=== PATIENT | female | born 1995 | race African-American/Black ===

== ENCOUNTER 2020-11-15 13:27 | Emergency (ER) | payer MEDICAID ==
--- NOTE | 2020-11-15 14:36 | ER Document Report ---
ED Medical Screen (RME) - General Stated Complaint: PELVIC PAIN Time Seen by Provider: 11/15/20 14:10 Notes: Patient presents complaining of lower pelvic pain for the past 4 days. Patient had an IUD removed yesterday due to malpositioning. Patient complains of lower pelvic pain with vaginal bleeding. Patient denies any fever, nausea or vomiting. Patient denies any urinary symptoms. I have greeted and performed a rapid initial assessment of this patient. A com prehensive ED assessment and evaluation of the patient, analysis of test results and completion of the medical decision making process will be conducted by additional ED providers. Physical Exam - Abdominal Tenderness: Tender - Lower pelvic tenderness
[2020-11-15 14:57] LABS: APPEARANCE,URINE SLIGHTLY-CLOUDY; BILIRUBIN,URINE NEGATIVE (NEGATIVE); COLOR,URINE YELLOW; GLUCOSE, URINE NEGATIVE (NEGATIVE); KETONES,URINE NEGATIVE (NEGATIVE); LEUKOCYTE ESTERASE,URINE SMALL (NEGATIVE); NITRITE,URINE NEGATIVE (NEGATIVE); PROTEIN,URINE 30 mg/dL (NEGATIVE); URINE SPECIFIC GRAVITY 1.028; UROBILINOGEN,URINE NEGATIVE mg/dL (<2.0)
--- NOTE | 2020-11-15 15:02 | ER Document Report ---
ED General - General Stated Complaint: PELVIC PAIN Time Seen by Provider: 11/15/20 14:10 Primary Care Provider: [facility] [Provider Group] - Follow up in 3-5 days - HPI Notes: 25-year-old female to the emergency department with complaints of pelvic pain that is been going on for 4 days. Admits to a slight vaginal discharge with it. She states that she saw her primary care provider at [facility] [address] yesterday. She had her IUD removed at that time thinking that it potentially was the reason why she is having pelvic pain. She also had STD testing and an ultrasound performed. Apparently the ultrasound said that she had some fluid in her uterus but no other findings. She states that she did get a call from her primary care physician well awaiting to be seen today and was told that she has a chlamydial infection. She does admit that she has been having unprotected sexual intercourse with her current partner. She states she is never had an STD before. Denies any fevers chills. She states that the pelvic pain is uncomfortable but not unbearable. Denies any nausea, vomiting, diarrhea. She denies any pain with urination. patient states that her primary care had called in a prescription for antibiotics for the chlamydia to her pharmacy but when we called her pharmacy, there was no prescription available for her. - Related Data Allergies/Adverse Reactions: No Known Allergies Allergy (Unverified 11/15/20 15:20) Past Medical History - General Information source: Patient - Social History Smoking Status: Never Smoker Frequency of alcohol use: Occasional Drug Abuse: None Family History: Reviewed & Not Pertinent Review of Systems - Review of Systems Constitutional: denies: Chills, Fever EENT: No symptoms reported Cardiovascular: denies: Chest pain, Dizziness, Lightheaded Respiratory: denies: Cough, Short of breath Gastrointestinal: Abdominal pain. denies: Diarrhea, Nausea, Vomiting Genitourinary: See HPI Female Genitourinary: See HPI, Vaginal discharge Musculoskeletal: No symptoms reported Skin: No symptoms reported Hematologic/Lymphatic: No symptoms reported Neurological/Psychological: No symptoms reported -: Yes All other systems reviewed and negative Physical Exam - Vital signs Vitals: Temp Pulse Resp BP Pulse Ox 98.0 F 89 16 111/71 100 11/15/20 13:44 11/15/20 13:44 11/15/20 13:44 11/15/20 13:44 11/15/20 13:44 Interpretation: Normal - Notes Notes: PHYSICAL EXAMINATION: GENERAL: Well-appearing, well-nourished and in no acute distress. HEAD: Atraumatic, normocephalic. EYES: Pupils equal round and reactive to light, extraocular movements intact, sclera anicteric, conjunctiva are normal. ENT: nares patent, oropharynx clear without exudates. Moist mucous membranes. NECK: Normal range of motion, supple without lymphadenopathy LUNGS: Breath sounds clear to auscultation bilaterally and equal. No wheezes rales or rhonchi. HEART: Regular rate and rhythm without murmurs ABDOMEN: Soft, nontender, normoactive bowel sounds. No guarding, no rebound. No masses appreciated. No CVA tenderness EXTREMITIES: Normal range of motion, no pitting or edema. No cyanosis. NEUROLOGICAL: No focal neurological deficits. Moves all extremities sponta neously and on command. PSYCH: Normal mood, normal affect. SKIN: Warm, Dry, normal turgor, no rashes or lesions noted. Course - Re-evaluation Re-evalutation: 11/15/20 16:04 Impression: Pelvic pain. Positive chlamydial infection through primary care that has not yet been treated. We will go ahead and give a shot of Rocephin and start on 14 days of doxycycline. We will do this since she does not have a prescription that we know of at her pharmacy currently. We will have her follow-up with [facility] [address] beginning of next week. She is to return if she has worsening symptoms. Noted lab work which is reassuring. She is not febrile. We will discharge home. - Vital Signs Vital signs: Temp Pulse Resp BP Pulse Ox 97.6 F 84 16 107/64 99 11/15/20 16:49 11/15/20 16:49 11/15/20 16:49 11/15/20 16:49 11/15/20 16:49 - Laboratory Results Result Diagrams: 11/15/20 14:27 11/15/20 14:27 Laboratory Results Interpreted: 11/15/20 11/15/20 14:27 14:27 Seg Neutrophils % 81.1 H Urine Protein 30 H Urine Blood MODERATE H Ur Leukocyte Esterase SMALL H Critical Laboratory Results Reviewed: No Critical Results - Radiology Results Critical Radiology Results Reviewed: No Critical Results Discharge - Discharge Clinical Impression: Pelvic pain, Chlamydia Condition: Stable Disposition: HOME, SELF-CARE Instructions: Chlamydia ([facility]), Pelvic Pain ([facility]) Additional Instructions: Please complete all antibiotics. He will need to take them for the full 2 weeks until they are gone. No sex with your significant other until they are tested and treated as well. Please return if you have worsening pain, fever, nausea, vomiting. Follow-up with [facility] [address] on Wednesday. Prescriptions: Doxycycline Monohydrate 100 mg PO BID #28 capsule Naproxen [Naprosyn 375 Mg Tablet] 375 mg PO BID #20 tablet Referrals: [facility] [Provider Group] - Follow up in 3-5 days
[2020-11-15 15:03] LABS: ABSOLUTE EOSINOPHILS # (AUTO) 0.1 10^3/uL (0.0-0.6); ABSOLUTE MONOCYTES (AUTO) 0.3 10^3/uL (0.1-1.4); ABSOLUTE NEUT (AUTO) 5.9 10^3/uL (1.7-8.2); BASOPHILS % (AUTO) 0.2 % (0-2); EOSINOPHILS % (AUTO) 0.9 % (0-6); HEMATOCRIT 37.4 % (36.0-47.0); HEMOGLOBIN 12.5 g/dL (12.0-15.5); LYMPHOCYTES % (AUTO) 13.9 % (13-45); MEAN CORPUSCULAR HEMOGLOBIN 30.6 pg (27.0-33.4); MEAN CORPUSCULAR HGB CONC 33.5 g/dL (32.0-36.0); MEAN CORPUSCULAR VOLUME 91 fl (80-97); MONOCYTES % (AUTO) 3.9 % (3-13); PLATELET COUNT 287 10^3/uL (150-450); RED CELL DISTRIBUTION WIDTH 12.9 % (11.5-14.0); SEGMENTED NEUTROPHILS % (AUTO) 81.1 % (42-78); TOTAL CELLS COUNTED % (AUTO) 100 %; WHITE BLOOD COUNT 7.3 10^3/uL (4.0-10.5)
[2020-11-15 15:12] LABS: ANION GAP 8 (5-19); BLOOD UREA NITROGEN 11 mg/dL (7-20); CALCIUM 9.7 mg/dL (8.4-10.2); CARBON DIOXIDE 25 mmol/L (22-30); CHLORIDE 104 mmol/L (98-107); GLUCOSE 83 mg/dL (75-110); POTASSIUM 4.6 mmol/L (3.6-5.0)
[2020-11-15] MEDS ORDERED: CEFTRIAXONE INJ 250 MG VIAL IM ONE (15:16)
[2020-11-15] MEDS ORDERED: LIDOCAINE 1% INJ-PF (10 MG/ML) 30 ML SDV INJ ONE (15:16)
[2020-11-15] MEDS ORDERED: KETOROLAC TROMETHAMINE 60 MG/2 ML SDV IM ONE (15:17)
[2020-11-15 16:51] VITALS: BP 107/64
== END 2020-11-15 16:50 | disposition home or self-care (01) ==
LOC: ER 13:27
DX: A56.02 Chlamydial vulvovaginitis (principal); R10.2 Pelvic and perineal pain; N89.8 Other specified noninflammatory disorders of vagina
CPT/HCPCS: 99284; 96372; 36415; 84703; 85025; 80048; 81001; J1885; J3490; J0696